=== PATIENT | male | born 1990 | race Caucasian/White ===

== ENCOUNTER 2016-07-19 15:19 | Day surgery (SDC) | payer BC ==
--- NOTE | 2016-07-19 15:49 | EDM.PDOC ---
ED HPI GI/ABDOMINAL - General Chief Complaint: Abdominal Pain Stated Complaint: STOMACH Time Seen by Provider: 07/19/16 15:28 Source of Information: Reports: Patient History Limitations: Reports: No limitations - History of Present Illness INITIAL COMMENTS - FREE TEXT/NARRATIVE: Presents reporting right lower quadrant pain. The patient states that about 4 days ago he had a "hard" bowel movement and has been unable to have a bowel movement since until yesterday when he took a laxative and had a very small llanes , mushy, mucousy stool. He denies dysuria, fever, personal history of renal calculi, nausea, vomiting. His father has kidney stones. - Related Data Allergies/ADRs: Allergies Allergy/AdvReac Type Severity Reaction Status Date / Time No Known Allergies Allergy Verified 07/19/16 15:28 Home Meds: Home Meds Acetaminophen [Tylenol] 07/19/16 [History] diphenhydrAMINE HCl [Sleep Aid] 07/19/16 [History] Past Medical History HEENT History: Reports: None Cardiovascular History: Reports: None Respiratory History: Reports: None Gastrointestinal History: Reports: None Neurological History: Reports: None Endocrine/Metabolic History: Reports: None Dermatologic History: Reports: None - Infectious Disease History Infectious Disease History: Reports: None - Past Surgical History HEENT Surgical History: Reports: None Cardiovascular Surgical History: Reports: None Respiratory Surgical History: Reports: None GI Surgical History: Reports: None Social & Family History - Family History Family Medical History: Noncontributory - Tobacco Use Smoking Status *Q: Never Smoker ED ROS GENERAL - Review of Systems Review Of Systems: ROS reveals no pertinent complaints other than HPI. ED EXAM, GI/ABD - Physical Exam Exam: See Below Exam Limited By: No limitations General Appearance: alert, no apparent distress Ears: normal external exam Nose: normal inspection Throat/Mouth: Normal inspection Head: atraumatic, normocephalic Neck: normal inspection Respiratory/Chest: no respiratory distress, lungs clear, normal breath sounds Cardiovascular: normal peripheral pulses, regular rate, rhythm, no murmur GI/Abdominal: normal bowel sounds, soft, no distention, tenderness (RLQ worse on deep palpation), guarding (RLQ). No: rebound, rigidity Back Exam: normal inspection Extremities: normal inspection Neurological: alert, oriented, normal cognition, no motor/sensory deficits Psychiatric: normal affect, normal mood Skin Exam: Warm, Dry, Intact, Normal color, No rash Course - Vital Signs Last Recorded V/S: Last Vital Signs Temp 36.6 C 07/19/16 15:29 Pulse 75 07/19/16 15:29 Resp 16 07/19/16 15:29 BP 136/81 07/19/16 15:29 Pulse Ox 99 07/19/16 15:29 - Orders/Labs/Meds Orders: Active Orders 24 hr Category Date Time Status Abdomen Pelvis wo Cont [CT] Stat Exams 07/19/16 15:35 Ordered CBC WITH AUTO DIFF [HEME] Stat Lab 07/19/16 15:35 Ordered COMPREHENSIVE METABOLIC PN,CMP [CHEM] Stat Lab 07/19/16 15:35 Ordered UA W/MICROSCOPIC [URIN] Stat Lab 07/19/16 15:35 Uncollected - Re-Assessments/Exams Free Text/Narrative Re-Assessment/Exam: 07/19/16 16:40 CT report and labs discussed with Dr. Warren, general surgery. Free Text/Narrative Re-Assessment/Exam: 07/19/16 17:01 Dr. Yeboah here to examine the patient. Departure - Departure Time of Disposition: 17:02 Disposition: Refer to Observation Clinical Impression: Appendicitis Qualifiers: Appendicitis type: acute appendicitis Acute appendicitis type: unspecified acute appendicitis type Qualified Code(s): K35.80 - Unspecified acute appendicitis Forms: ED Department Discharge - My Orders Last 24 Hours: My Active Orders 07/19/16 15:35 Abdomen Pelvis wo Cont [CT] Stat CBC WITH AUTO DIFF [HEME] Stat COMPREHENSIVE METABOLIC PN,CMP [CHEM] Stat UA W/MICROSCOPIC [URIN] Stat - Assessment/Plan Last 24 Hours: My Active Orders 07/19/16 15:35 Abdomen Pelvis wo Cont [CT] Stat CBC WITH AUTO DIFF [HEME] Stat COMPREHENSIVE METABOLIC PN,CMP [CHEM] Stat UA W/MICROSCOPIC [URIN] Stat
[2016-07-19 16:14] LABS: CHLORIDE,CL 105 mmol/L (98-110); SODIUM,NA 140 mmol/L (136-146)
[2016-07-19] MEDS ORDERED: Sodium Chloride 0.9% 1,000 ML IV ONE (16:40)
[2016-07-19] MEDS ORDERED: Piperacillin/Tazobactam 3.375 GM in Sodium Chloride 0.9% 50 ML IV ONE (17:00)
[2016-07-19] MEDS ORDERED: Ondansetron 4 MG/2 ML SDV ONE (17:03)
[2016-07-19] MEDS ORDERED: Propofol 200 MG/20 ML SDV ONE (17:03)
[2016-07-19] MEDS ORDERED: Rocuronium 10 MG/ML 10 ML Syringe ONE (17:03)
[2016-07-19] MEDS ORDERED: Lidocaine 2% 5 ML SDV ONE (17:03)
[2016-07-19] MEDS ORDERED: Midazolam 1 MG/ML 2 ML SDV ONE (17:04)
[2016-07-19] MEDS ORDERED: fentaNYL 250 MCG/5 ML SDV ONE (17:04)
--- NOTE | 2016-07-19 17:13 | PCM.SN ---
- Free Text/Narrative Note: H and P dictated.
[2016-07-19] MEDS ORDERED: Sodium Chloride 0.9% 2.5 ML Syringe FLUSH PRN (17:19)
[2016-07-19] MEDS ORDERED: Sodium Chloride 0.9% 10 ML Syringe FLUSH PRN (17:19)
[2016-07-19] MEDS ORDERED: Bupivacaine 0.5% 30 ML SDV ONE (17:24)
--- NOTE | 2016-07-19 17:24 | PCM.PREANE ---
Preanesthetic Assessment - Anesthesia/Transfusion/Family Hx Anesthesia History: No Prior Anesthesia Family History of Anesthesia Reaction: No Transfusion History: No Prior Transfusion(s) - Review of Systems General: No Symptoms Pulmonary: No Symptoms Cardiovascular: No Symptoms Gastrointestinal: Nausea, Vomiting Neurological: No Symptoms Other: Reports: None - Physical Assessment NPO Status Date: 07/19/16 NPO Status Time: 14:00 O2 Sat by Pulse Oximetry: 99 Respiratory Rate: 16 Vital Signs: Last Vital Signs Temp 36.6 C 07/19/16 15:29 Pulse 75 07/19/16 15:29 Resp 16 07/19/16 15:29 BP 136/81 07/19/16 15:29 Pulse Ox 99 07/19/16 15:29 Height: 5 ft 7 in Weight: 68.039 kg ASA Class: 1E Mental Status: Alert & Oriented x3 Airway Class: Mallampati = 1 Dentition: Reports: Normal Dentition Thyro-Mental Finger Breadths: 3 Mouth Opening Finger Breadths: 3 ROM/Head Extension: Full Lungs: Clear to auscultation Cardiovascular: Regular Rate - Lab Values: Laboratory Last Values WBC 12.97 K/uL (4.0-11.0) H 07/19/16 15:48 RBC 5.42 M/uL (4.50-5.90) 07/19/16 15:48 Hgb 16.6 g/dL (13.0-17.0) 07/19/16 15:48 Hct 47.6 % (38.0-50.0) 07/19/16 15:48 MCV 87.8 fL (80.0-98.0) 07/19/16 15:48 MCH 30.6 pg (27.0-32.0) 07/19/16 15:48 MCHC 34.9 g/dL (31.0-37.0) 07/19/16 15:48 RDW Std Deviation 39.9 fl (28.0-62.0) 07/19/16 15:48 RDW Coeff of Augie 13 % (11.0-15.0) 07/19/16 15:48 Plt Count 226 K/uL (150-400) 07/19/16 15:48 MPV 11.30 fL (7.40-12.00) 07/19/16 15:48 Neut % (Auto) 75.1 % (48.0-80.0) 07/19/16 15:48 Lymph % (Auto) 16.4 % (16.0-40.0) 07/19/16 15:48 [place] % (Auto) 6.3 % (0.0-15.0) 07/19/16 15:48 Eos % (Auto) 1.5 % (0.0-7.0) 07/19/16 15:48 Baso % (Auto) 0.7 % (0.0-1.5) 07/19/16 15:48 Neut # 9.7 K/uL (1.4-5.7) H 07/19/16 15:48 Lymph # 2.1 K/uL (0.6-2.4) 07/19/16 15:48 [place] # 0.8 K/uL (0.0-0.8) 07/19/16 15:48 Eos # 0.2 K/uL (0.0-0.7) 07/19/16 15:48 Baso # 0.1 K/uL (0.0-0.1) 07/19/16 15:48 Nucleated RBC % 0.0 /100WBC 07/19/16 15:48 Nucleated RBCs # 0 K/uL 07/19/16 15:48 Sodium 140 mmol/L (136-146) 07/19/16 15:48 Potassium 4.5 mmol/L (3.5-5.1) 07/19/16 15:48 Chloride 105 mmol/L (98-110) 07/19/16 15:48 Carbon Dioxide 26 mmol/L (21-31) 07/19/16 15:48 BUN 13 mg/dL (6.0-23.0) 07/19/16 15:48 Creatinine 0.9 mg/dL (0.6-1.5) 07/19/16 15:48 Est Cr Clr Drug Dosing 116.29 mL/min 07/19/16 15:48 Estimated GFR (MDRD) > 60.0 ml/min 07/19/16 15:48 Glucose 101 mg/dL (60-110) 07/19/16 15:48 Calcium 9.3 mg/dL (8.8-10.8) 07/19/16 15:48 Total Bilirubin 1.0 mg/dL (0.1-1.5) 07/19/16 15:48 AST 22 IU/L (5-40) 07/19/16 15:48 ALT 19 IU/L (8-54) 07/19/16 15:48 Alkaline Phosphatase 68 (40-150) 07/19/16 15:48 Total Protein 8.2 g/dL (6.0-8.0) H 07/19/16 15:48 Albumin 4.4 g/dL (3.5-5.0) 07/19/16 15:48 Globulin 3.8 g/dL (2.0-3.5) H 07/19/16 15:48 Albumin/Globulin Ratio 1.2 (1.3-2.8) L 07/19/16 15:48 Urine Color YELLOW 07/19/16 16:40 Urine Appearance CLEAR 07/19/16 16:40 Urine pH 7.5 (5.0-8.0) 07/19/16 16:40 Ur Specific [place] 1.015 (1.001-1.035) 07/19/16 16:40 Urine Protein NEGATIVE mg/dL (NEGATIVE) 07/19/16 16:40 Urine Glucose (UA) NEGATIVE mg/dL (NEGATIVE) 07/19/16 16:40 Urine Ketones NEGATIVE mg/dL (NEGATIVE) 07/19/16 16:40 Urine Occult Blood NEGATIVE (NEGATIVE) 07/19/16 16:40 Urine Nitrite NEGATIVE (NEGATIVE) 07/19/16 16:40 Urine Bilirubin NEGATIVE (NEGATIVE) 07/19/16 16:40 Urine Urobilinogen 0.2 EU/dL (<2.0) 07/19/16 16:40 Ur Leukocyte Esterase NEGATIVE (NEGATIVE) 07/19/16 16:40 Urine RBC 0-2 (0-2/HPF) 07/19/16 16:40 Urine WBC 0-2 (0-5/HPF) 07/19/16 16:40 Ur Epithelial Cells RARE (NONE-FEW) 07/19/16 16:40 Urine Bacteria RARE (NEGATIVE) 07/19/16 16:40 - Allergies Allergies/Adverse Reactions: Allergies Allergy/AdvReac Type Severity Reaction Status Date / Time No Known Allergies Allergy Verified 07/19/16 15:28 - Blood Blood Available: No - Acknowledgements Anesthesia Type Planned: General Anesthesia Pt an Appropriate Candidate for the Planned Anesthesia: Yes Alternatives and Risks of Anesthesia Discussed w Pt/Guardian: Yes Pt/Guardian Understands and Agrees with Anesthesia Plan: Yes PreAnesthesia Questionnaire HEENT History: Reports: None Cardiovascular History: Reports: None Respiratory History: Reports: None Gastrointestinal History: Reports: None Neurological History: Reports: None Endocrine/Metabolic History: Reports: None Dermatologic History: Reports: None - Infectious Disease History Infectious Disease History: Reports: None - Past Surgical History HEENT Surgical History: Reports: None Cardiovascular Surgical History: Reports: None Respiratory Surgical History: Reports: None GI Surgical History: Reports: None - SUBSTANCE USE Smoking Status *Q: Never Smoker - HOME MEDS Home Medications: Home Meds Acetaminophen [Tylenol] 07/19/16 [History] diphenhydrAMINE HCl [Sleep Aid] 07/19/16 [History] - CURRENT (IN HOUSE) MEDS Current Meds: Current Medications Sodium Chloride (Normal Saline) 1,000 mls @ 999 mls/hr IV STAT ONE Stop: 07/19/16 17:40 Last Admin: 07/19/16 16:51 Dose: 999 mls/hr Piperacillin Sod/Tazobactam (Sod 3.375 gm/ Sodium Chloride) 50 mls @ 100 mls/ hr IV ONETIME ONE Stop: 07/19/16 17:29 Last Admin: 07/19/16 17:07 Dose: 100 mls/hr Lactated Ringer's (Ringers, Lactated) 1,000 mls @ 125 mls/hr IV ASDIRECTED BIJAL Sodium Chloride (Saline Flush) 10 ml FLUSH ASDIRECTED PRN PRN Reason: Keep Vein Open Sodium Chloride (Saline Flush) 2.5 ml FLUSH ASDIRECTED PRN PRN Reason: Keep Vein Open Discontinued Medications Fentanyl (Sublimaze) Confirm Administered Dose 250 mcg .ROUTE .STK-MED ONE Stop: 07/19/16 17:05 Lidocaine (Xylocaine-Mpf 2%) Confirm Administered Dose 5 ml .ROUTE .STK-MED ONE Stop: 07/19/16 17:04 Midazolam HCl (Versed 1 Mg/Ml) Confirm Administered Dose 2 mg .ROUTE .STK-MED ONE Stop: 07/19/16 17:05 Ondansetron HCl (Zofran) Confirm Administered Dose 4 mg .ROUTE .STK-MED ONE Stop: 07/19/16 17:04 Propofol (Diprivan 20 Ml) Confirm Administered Dose 200 mg .ROUTE .STK-MED ONE Stop: 07/19/16 17:04 Rocuronium [place] (Zemuron) Confirm Administered Dose 100 mg .ROUTE .STK-MED ONE Stop: 07/19/16 17:04 Preanesthetic Assessment - PHYSICAL ASSESSMENT O2 Sat by Pulse Oximetry: 99 RR: 16 Vital Signs: Last Vital Signs Temp 36.6 C 07/19/16 15:29 Pulse 75 07/19/16 15:29 Resp 16 07/19/16 15:29 BP 136/81 07/19/16 15:29 Pulse Ox 99 07/19/16 15:29 Height: 5 ft 7 in Weight: 68.039 kg - LAB Values: Laboratory Last Values WBC 12.97 K/uL (4.0-11.0) H 07/19/16 15:48 RBC 5.42 M/uL (4.50-5.90) 07/19/16 15:48 Hgb 16.6 g/dL (13.0-17.0) 07/19/16 15:48 Hct 47.6 % (38.0-50.0) 07/19/16 15:48 MCV 87.8 fL (80.0-98.0) 07/19/16 15:48 MCH 30.6 pg (27.0-32.0) 07/19/16 15:48 MCHC 34.9 g/dL (31.0-37.0) 07/19/16 15:48 RDW Std Deviation 39.9 fl (28.0-62.0) 07/19/16 15:48 RDW Coeff of Augie 13 % (11.0-15.0) 07/19/16 15:48 Plt Count 226 K/uL (150-400) 07/19/16 15:48 MPV 11.30 fL (7.40-12.00) 07/19/16 15:48 Neut % (Auto) 75.1 % (48.0-80.0) 07/19/16 15:48 Lymph % (Auto) 16.4 % (16.0-40.0) 07/19/16 15:48 [place] % (Auto) 6.3 % (0.0-15.0) 07/19/16 15:48 Eos % (Auto) 1.5 % (0.0-7.0) 07/19/16 15:48 Baso % (Auto) 0.7 % (0.0-1.5) 07/19/16 15:48 Neut # 9.7 K/uL (1.4-5.7) H 07/19/16 15:48 Lymph # 2.1 K/uL (0.6-2.4) 07/19/16 15:48 [place] # 0.8 K/uL (0.0-0.8) 07/19/16 15:48 Eos # 0.2 K/uL (0.0-0.7) 07/19/16 15:48 Baso # 0.1 K/uL (0.0-0.1) 07/19/16 15:48 Nucleated RBC % 0.0 /100WBC 07/19/16 15:48 Nucleated RBCs # 0 K/uL 07/19/16 15:48 Sodium 140 mmol/L (136-146) 07/19/16 15:48 Potassium 4.5 mmol/L (3.5-5.1) 07/19/16 15:48 Chloride 105 mmol/L (98-110) 07/19/16 15:48 Carbon Dioxide 26 mmol/L (21-31) 07/19/16 15:48 BUN 13 mg/dL (6.0-23.0) 07/19/16 15:48 Creatinine 0.9 mg/dL (0.6-1.5) 07/19/16 15:48 Est Cr Clr Drug Dosing 116.29 mL/min 07/19/16 15:48 Estimated GFR (MDRD) > 60.0 ml/min 07/19/16 15:48 Glucose 101 mg/dL (60-110) 07/19/16 15:48 Calcium 9.3 mg/dL (8.8-10.8) 07/19/16 15:48 Total Bilirubin 1.0 mg/dL (0.1-1.5) 07/19/16 15:48 AST 22 IU/L (5-40) 07/19/16 15:48 ALT 19 IU/L (8-54) 07/19/16 15:48 Alkaline Phosphatase 68 (40-150) 07/19/16 15:48 Total Protein 8.2 g/dL (6.0-8.0) H 07/19/16 15:48 Albumin 4.4 g/dL (3.5-5.0) 07/19/16 15:48 Globulin 3.8 g/dL (2.0-3.5) H 07/19/16 15:48 Albumin/Globulin Ratio 1.2 (1.3-2.8) L 07/19/16 15:48 Urine Color YELLOW 07/19/16 16:40 Urine Appearance CLEAR 07/19/16 16:40 Urine pH 7.5 (5.0-8.0) 07/19/16 16:40 Ur Specific [place] 1.015 (1.001-1.035) 07/19/16 16:40 Urine Protein NEGATIVE mg/dL (NEGATIVE) 07/19/16 16:40 Urine Glucose (UA) NEGATIVE mg/dL (NEGATIVE) 07/19/16 16:40 Urine Ketones NEGATIVE mg/dL (NEGATIVE) 07/19/16 16:40 Urine Occult Blood NEGATIVE (NEGATIVE) 07/19/16 16:40 Urine Nitrite NEGATIVE (NEGATIVE) 07/19/16 16:40 Urine Bilirubin NEGATIVE (NEGATIVE) 07/19/16 16:40 Urine Urobilinogen 0.2 EU/dL (<2.0) 07/19/16 16:40 Ur Leukocyte Esterase NEGATIVE (NEGATIVE) 07/19/16 16:40 Urine RBC 0-2 (0-2/HPF) 07/19/16 16:40 Urine WBC 0-2 (0-5/HPF) 07/19/16 16:40 Ur Epithelial Cells RARE (NONE-FEW) 07/19/16 16:40 Urine Bacteria RARE (NEGATIVE) 07/19/16 16:40 - ALLERGIES Allergies/Adverse Reactions: Allergies Allergy/AdvReac Type Severity Reaction Status Date / Time No Known Allergies Allergy Verified 07/19/16 15:28
[2016-07-19] MEDS ORDERED: Dexamethasone 4 MG/ML 5 ML MDV ONE (17:48)
[2016-07-19] MEDS ORDERED: Scopolamine 1.5 MG Transdermal Patch ONE (17:49)
[2016-07-19] MEDS ORDERED: HYDROmorphone 2 MG/ML Syringe ONE (17:57)
[2016-07-19] MEDS ORDERED: Ketorolac 30 MG/ML SDV ONE (18:18)
[2016-07-19] MEDS ORDERED: Ondansetron 4 MG/2 ML SDV IVPUSH PRN (18:36)
[2016-07-19] MEDS ORDERED: HYDROmorphone 2 MG/ML Syringe IVPUSH PRN (18:36)
--- NOTE | 2016-07-19 18:40 | PCM.OPNOTE ---
- General Post-Op/Procedure Note Date of Surgery/Procedure: 07/19/16 Operative Procedure(s): Laparoscopic appendectomy Findings: Inflamed appendix. No perforation. Pre Op Diagnosis: Appendicitis Post-Op Diagnosis: Appendicitis Anesthesia Technique: General ET tube Primary Surgeon: Carolee Yeboah Pathology: appendix EBL in mLs: 10 Condition: Fair
--- NOTE | 2016-07-19 19:30 | PCM.POSTAN ---
POST ANESTHESIA ASSESSMENT - MENTAL STATUS Mental Status: alert, oriented - RESPIRATORY Respiratory Status: respiratory rate WNL, airway patent, O2 saturation stable - CARDIOVASCULAR CV Status: pulse rate WNL, blood pressure stable - GASTROINTESTINAL GI Status: no symptoms - PAIN Pain Score: 2 - POST OP HYDRATION Hydration Status: adequate & stable
[2016-07-19] MEDS: Lactated Ringers 1,000 ML IV SCH (19:37)
--- NOTE | 2016-07-19 19:55 | PCM48HPAN ---
Post Anesthesia Note - EVALUATION WITHIN 48HRS OF ANESTHETIC Vital Signs in Normal Range: Yes Patient Participated in Evaluation: Yes Respiratory Function Stable: Yes Airway Patent: Yes Cardiovascular Function Stable: Yes Hydration Status Stable: Yes Pain Control Satisfactory: Yes Nausea and Vomiting Control Satisfactory: Yes Mental Status Recovered: Yes
--- NOTE | 2016-07-19 21:06 | HP ---
DATE OF : 1990 PRIMARY CARE PHYSICIAN: Sajan PCP CHIEF COMPLAINT: Right lower quadrant pain. HISTORY OF PRESENT ILLNESS: The patient is a 26-year-old, otherwise healthy male, who presents with a one- day history of abdominal pain and constipation. The patient developed abdominal pain overnight which he thought was a viral illness. The pain persisted throughout the day and the patient felt bloated and constipated. He took a laxative with no results. The pain then migrated down to his right lower quadrant. He discussed his symptoms with his mother, who sent him into the emergency room. On examination in the emergency room, his abdomen was fairly nontender. A CT of the abdomen and pelvis was obtained that showed mild enlargement and periappendiceal inflammation around the appendix. The patient's white count came back at 12.9. He is otherwise afebrile and nontoxic appearing. PAST MEDICAL HISTORY: None. PAST SURGICAL HISTORY: None. FAMILY HISTORY: Noncontributory. SOCIAL HISTORY: No ethanol, tobacco, or drugs. ALLERGIES TO MEDICATIONS: None. CURRENT MEDICATIONS: None. REVIEW OF SYSTEMS: A 10-point review of systems is negative other than stated above in the HPI. PHYSICAL EXAMINATION: VITAL SIGNS: Blood pressure 136/81, temp 97.9, pulse 75, respirations 16, SpO2 of 99% on room air. GENERAL: A well appearing, young gentleman, in no acute distress. HEENT: Ears and nose are normal externally. Eyes, pupils are equal, round, reactive to light and accommodation. Conjunctivae clear. Mouth, mucous membranes moist. LUNGS: Clear to auscultation bilaterally. HEART: Regular rate and rhythm. ABDOMEN: Flat, soft, nontender to palpation. Guarding and rebound to percussion in the right lower quadrant. EXTREMITIES: Warm and well perfused. 2+ arterial pulses throughout. LABORATORY DATA: CBC; white blood count 12.97, hemoglobin 16.6, platelet count 226, neutrophil percent 75.1. CMP within normal limits. UA is normal. Abdomen and pelvis CT, impression: 1. Mild enlargement of the appendix with periappendiceal inflammatory changes in the retrocecal location; rule out early appendicitis. 2. Absent right kidney. 3. No kidney stones on the left side. 4. Minimal thickening of bladder, follow up as needed. 5. No other abnormalities are identified. ASSESSMENT: Acute appendicitis. PLAN: Given the patient's history and tenderness over the right lower quadrant, I feel he has very early appendicitis. We discussed the pathophysiology of appendicitis. I explained to the patient that the treatment for this would be removal of his appendix. We discussed the laparoscopic and open procedures. I explained that should I be unable to perform the appendectomy laparoscopically, I would be converting to open. We discussed the risks, including bleeding, infection, or damage to surrounding structures. The patient verbalized understanding and wishes to proceed. The patient will be given IV Zosyn prior to the OR and admitted after surgery. MARIE VARGAS /[id number]
--- NOTE | 2016-07-19 21:52 | OR ---
SURGEON: MELISSA RAMSAY MD DATE OF PROCEDURE: 07/19/2016 PREOPERATIVE DIAGNOSIS: Appendicitis. POSTOPERATIVE DIAGNOSIS: Nonperforated appendicitis. PROCEDURE PERFORMED: Laparoscopic appendectomy. ESTIMATED BLOOD LOSS: 10 mL. FINDINGS: Acutely inflamed and dilated retrocecal appendix with no evidence of perforation. COMPLICATIONS: None. INDICATIONS: The patient is a 26-year-old male with a one-day history of abdominal pain, now centered in the right lower quadrant. CT showed mildly dilated and inflamed appendix. White count was 13,000. The patient and I had a discussion regarding the pathophysiology of appendicitis. I explained to him that the most appropriate treatment would be removal of the appendix. We discussed the laparoscopic and open procedures. I explained that should I be unable to perform this laparoscopically, I would perform it open. We discussed the risks including bleeding, infection, damage to surrounding structure. I also explained his most likely course of postoperative care given my findings. The patient verbalized understanding and wished to proceed. PROCEDURE IN DETAIL: The patient was brought to the operating room suite and placed in the supine position on the operating room table. A time-out was completed verifying the patient's name, age, date of , allergies, and procedure to be performed. General endotracheal anesthesia was induced. The abdomen was prepped and draped in usual standard fashion. A Solis catheter was placed and the left arm was tucked to the patient's side. A 0.5% Marcaine was used to anesthetize all three port site incisions prior to placement of the trocars. A 1-cm incision was made in the left upper quadrant along the mid axillary line at approximately 2 finger breaths below the left subcostal margin. Using a 5 mm optical trocar, I gained entry into the abdomen. The abdomen was insufflated to a pressure of 13-15 mmHg with carbon dioxide. A 5 mm 30-degree scope was inserted and the area underneath my initial trocar was inspected for any injury and none was noted. A 5-mm trocar was placed just lateral to the umbilicus on the left side. This was done under direct visualization. A 12-mm port was placed under direct visualization in the left lower quadrant. Care was taken to avoid any injury to the inferior epigastric vessels. The patient was then placed into Trendelenburg position and airplane'd to the left side. Using atraumatic graspers, the small bowel was swept up to the left upper quadrant and I noted the tinea of the cecum. This was then grasped and tinea rotated medially exposing a grossly inflamed and enlarged appendix. The appendix tip was grasped with the atraumatic grasper and brought up into view. I was able to easily trace the appendix down to the base of the cecum. A window was made between the appendiceal mesentery and the base of the appendix. This was made large enough to accommodate a stapler across the base of the appendix. An endoscopic stapler loaded with a 45 mm blue load was then passed into the patient's abdomen and placed across the base of the appendix. The appendix was stapled and ligated. I then used a Harmonic Scalpel to free up some of the appendiceal mesentery to allow passage of another endoscopic stapler across the appendiceal mesentery. A 45 mm plasencia load was placed on the endoscopic stapling device and passed into the abdomen. The appendiceal mesentery was stapled and ligated. The appendix and an associated mesentery was then placed in an EndoCatch bag and removed through the left lower quadrant port. The 11 mm port was then replaced back into the abdomen. The remainder of the abdomen was inspected and no further injury was noted. There was some cloudy appearing fluid down in the pelvis. This was irrigated and washed out. I irrigated the area around the base of the cecum with normal saline until it ran clear. The base of the cecum and mesentery were reinspected for hemostasis, and hemostasis was ensured. I then attempted to close the 12 mm left lower quadrant port site using a Mark-Lisa needle. However, I was unable to keep insufflation in the abdomen which prevented me from safely passing the Mark-Lisa needle into the abdomen. I instead removed the remainder of the ports under direct visualization and allowed the abdomen to desufflate. I then closed the left lower quadrant fascia with an 0 Vicryl suture on a UR-6 needle. This was closed in a [id number] fashion. A small subcutaneous skin bleeder was noted. I attempted to obtain hemostasis with cautery, but was unable to do so. I then tied off the vessel with a 3-0 Vicryl suture. The subcutaneous tissue was then closed using an interrupted 3-0 Vicryl. I then closed the skin over the 12-mm port site with a running 4-0 Monocryl suture. The remainder of the 5-mm trocar sites were closed with interrupted 4-0 Monocryl. Steri-Strips and sterile dressings were applied. Counts were complete and correct at the end of the case. The patient was extubated and taken to PACU in stable condition. MARIE VARGAS /[id number]
[2016-07-20] MEDS: Acetaminophen/oxyCODONE 325-5 MG Tab PO PRN ×2 (01:18→08:21)
[2016-07-20] MEDS: Lactated Ringers 1,000 ML IV SCH (03:02)
[2016-07-20 08:13] VITALS: BP 112/51
--- NOTE | 2016-07-20 09:35 | PCM.PN ---
- General Info Date of Service: 07/20/16 Functional Status: Reports: pain controlled, tolerating diet, ambulating, urinating - Review of Systems General: Reports: No Symptoms Pulmonary: Reports: no symptoms Cardiovascular: Reports: No Symptoms Gastrointestinal: Reports: No symptoms Genitourinary: Reports: no symptoms Musculoskeletal: Reports: no symptoms Skin: Reports: no symptoms - Patient Data Vitals - most recent: Last Vital Signs Temp 37.4 C 07/20/16 08:00 Pulse 67 07/20/16 08:00 Resp 16 07/20/16 08:00 BP 112/51 L 07/20/16 08:00 Pulse Ox 97 07/20/16 08:00 Weight - most recent: 71 kg I&O - last 24 hours: Intake & Output 07/19/16 07/20/16 07/20/16 22:59 06:59 14:59 Intake Total 2100 1500 Output Total 160 400 Balance 1940 1100 Lab Results last 24 hrs: Laboratory Results - last 24 hr 07/19/16 07/19/16 07/19/16 Range/Units 15:48 15:48 16:40 WBC 12.97 H (4.0-11.0) K/uL RBC 5.42 (4.50-5.90) M/uL Hgb 16.6 (13.0-17.0) g/dL Hct 47.6 (38.0-50.0) % MCV 87.8 (80.0-98.0) fL MCH 30.6 (27.0-32.0) pg MCHC 34.9 (31.0-37.0) g/dL RDW Std Deviation 39.9 (28.0-62.0) fl RDW Coeff of Augie 13 (11.0-15.0) % Plt Count 226 (150-400) K/uL MPV 11.30 (7.40-12.00) fL Neut % (Auto) 75.1 (48.0-80.0) % Lymph % (Auto) 16.4 (16.0-40.0) % Evans % (Auto) 6.3 (0.0-15.0) % Eos % (Auto) 1.5 (0.0-7.0) % Baso % (Auto) 0.7 (0.0-1.5) % Neut # 9.7 H (1.4-5.7) K/uL Lymph # 2.1 (0.6-2.4) K/uL Evans # 0.8 (0.0-0.8) K/uL Eos # 0.2 (0.0-0.7) K/uL Baso # 0.1 (0.0-0.1) K/uL Nucleated RBC % 0.0 /100WBC Nucleated RBCs # 0 K/uL Sodium 140 (136-146) mmol/L Potassium 4.5 (3.5-5.1) mmol/L Chloride 105 (98-110) mmol/L Carbon Dioxide 26 (21-31) mmol/L BUN 13 (6.0-23.0) mg/dL Creatinine 0.9 (0.6-1.5) mg/dL Est Cr Clr Drug Dosing 116.29 mL/min Estimated GFR (MDRD) > 60.0 ml/min Glucose 101 (60-110) mg/dL Calcium 9.3 (8.8-10.8) mg/dL Total Bilirubin 1.0 (0.1-1.5) mg/dL AST 22 (5-40) IU/L ALT 19 (8-54) IU/L Alkaline Phosphatase 68 (40-150) Total Protein 8.2 H (6.0-8.0) g/dL Albumin 4.4 (3.5-5.0) g/dL Globulin 3.8 H (2.0-3.5) g/dL Albumin/Globulin Ratio 1.2 L (1.3-2.8) Urine Color YELLOW Urine Appearance CLEAR Urine pH 7.5 (5.0-8.0) Ur Specific [place] 1.015 (1.001-1.035) Urine Protein NEGATIVE (NEGATIVE) mg/dL Urine Glucose (UA) NEGATIVE (NEGATIVE) mg/dL Urine Ketones NEGATIVE (NEGATIVE) mg/dL Urine Occult Blood NEGATIVE (NEGATIVE) Urine Nitrite NEGATIVE (NEGATIVE) Urine Bilirubin NEGATIVE (NEGATIVE) Urine Urobilinogen 0.2 (<2.0) EU/dL Ur Leukocyte Esterase NEGATIVE (NEGATIVE) Urine RBC 0-2 (0-2/HPF) Urine WBC 0-2 (0-5/HPF) Ur Epithelial Cells RARE (NONE-FEW) Urine Bacteria RARE (NEGATIVE) Med Orders - Current: Current Medications Hydromorphone HCl (Dilaudid) 0.5 mg IVPUSH Q1H PRN PRN Reason: Pain (severe 7-10) Last Admin: 07/19/16 20:52 Dose: 0.5 mg Lactated Ringer's (Ringers, Lactated) 1,000 mls @ 125 mls/hr IV ASDIRECTED BIJAL Last Admin: 07/20/16 03:02 Dose: 125 mls/hr Ondansetron HCl (Zofran) 4 mg IVPUSH Q6H PRN PRN Reason: Nausea/Vomiting Oxycodone/Acetaminophen (Percocet 325-5 Mg) 2 tab PO Q4H PRN PRN Reason: Pain (moderate 4-6) Last Admin: 07/20/16 08:21 Dose: 2 tab Sodium Chloride (Saline Flush) 10 ml FLUSH ASDIRECTED PRN PRN Reason: Keep Vein Open Sodium Chloride (Saline Flush) 2.5 ml FLUSH ASDIRECTED PRN PRN Reason: Keep Vein Open Discontinued Medications Bupivacaine HCl (Marcaine 0.5%) Confirm Administered Dose 30 ml .ROUTE .STK-MED ONE Stop: 07/19/16 17:25 Dexamethasone (Dexamethasone) Confirm Administered Dose 20 mg .ROUTE .STK-MED ONE Stop: 07/19/16 17:49 Fentanyl (Sublimaze) Confirm Administered Dose 250 mcg .ROUTE .STK-MED ONE Stop: 07/19/16 17:05 Hydromorphone HCl (Dilaudid) Confirm Administered Dose 2 mg .ROUTE .STK-MED ONE Stop: 07/19/16 17:58 Sodium Chloride (Normal Saline) 1,000 mls @ 999 mls/hr IV STAT ONE Stop: 07/19/16 17:40 Last Admin: 07/19/16 16:51 Dose: 999 mls/hr Piperacillin Sod/Tazobactam (Sod 3.375 gm/ Sodium Chloride) 50 mls @ 100 mls/ hr IV ONETIME ONE Stop: 07/19/16 17:29 Last Admin: 07/19/16 17:07 Dose: 100 mls/hr Ketorolac Tromethamine (Toradol) Confirm Administered Dose 30 mg .ROUTE .STK- MED ONE Stop: 07/19/16 18:19 Lidocaine (Xylocaine-Mpf 2%) Confirm Administered Dose 5 ml .ROUTE .STK-MED ONE Stop: 07/19/16 17:04 Midazolam HCl (Versed 1 Mg/Ml) Confirm Administered Dose 2 mg .ROUTE .STK-MED ONE Stop: 07/19/16 17:05 Ondansetron HCl (Zofran) Confirm Administered Dose 4 mg .ROUTE .STK-MED ONE Stop: 07/19/16 17:04 Propofol (Diprivan 20 Ml) Confirm Administered Dose 200 mg .ROUTE .STK-MED ONE Stop: 07/19/16 17:04 Rocuronium [place] (Zemuron) Confirm Administered Dose 100 mg .ROUTE .STK-MED ONE Stop: 07/19/16 17:04 Scopolamine (Transderm-Scop) Confirm Administered Dose 1.5 mg .ROUTE .STK-MED ONE Stop: 07/19/16 17:50 Senna/Docusate Sodium (Senna Plus) 2 tab PO ONETIME ONE Stop: 07/20/16 07:41 Last Admin: 07/20/16 08:22 Dose: 2 tab - Exam General: alert, oriented HEENT: Pupils equal, Pupils reactive Lungs: Clear to auscultation, Normal respiratory effort Cardiovascular: Regular Rate, Regular Rhythm Abdomen: bowel sounds present, soft, no tenderness, no distension Extremities: no edema - Problem List & Annotations (1) Appendicitis SNOMED Code(s): 38100117 Code(s): K37 - UNSPECIFIED APPENDICITIS Status: Acute Current Visit: Yes Qualifiers: Appendicitis type: acute appendicitis Acute appendicitis type: unspecified acute appendicitis type Qualified Code(s): K35.80 - Unspecified acute appendicitis - Problem List Review Problem List Initiated/Reviewed/Updated: Yes - My Orders Last 24 Hours: My Active Orders 07/19/16 17:19 Sodium Chloride 0.9% [Saline Flush] 10 ml FLUSH ASDIRECTED PRN Sodium Chloride 0.9% [Saline Flush] 2.5 ml FLUSH ASDIRECTED PRN Peripheral IV Insertion Adult [OM.PC] Routine Sequential Compression Device [OM.PC] Routine Resuscitation Status Routine 07/19/16 17:20 Antiembolic Devices [RC] Q12H 07/19/16 17:30 Lactated Ringers [Ringers, Lactated] 1,000 ml IV ASDIRECTED 07/19/16 18:36 Oxygen Therapy [RC] PRN RT Incentive Spirometry [RC] ASDIRECTED Up ad Amber [RC] ASDIRECTED Acetaminophen/oxyCODONE [Percocet 325-5 MG] 2 tab PO Q4H PRN HYDROmorphone [Dilaudid] 0.5 mg IVPUSH Q1H PRN Ondansetron [Zofran] 4 mg IVPUSH Q6H PRN 07/19/16 18:37 Intake and Output [RC] Q12H Notify Provider Vital Signs [RC] PRN 07/20/16 07:37 Ready for Discharge [RC] PER UNIT ROUTINE 07/20/16 Breakfast Regular Diet [DIET] - Assessment Assessment:: POD # 1 laparoscopic appendectomy for non-perforated appendicitis - Plan Plan:: -Pain: D/C home with percocet -GI: Regular diet as tolerated. Miralax daily while on narcotics. Senna/ docusate this am -Infectious: VSS. Appendix non-perforated. No need for at home antibiotics -D/C home today. No driving or work for one week. Dressings can be removed tomorrow. Ok to shower after that. No swimming/tub bath for two weeks. No lifting > 20lbs for 4 weeks.
--- NOTE | 2016-07-20 19:35 | CT ---
EXAM DATE: 07/19/16 PATIENT'S AGE: 26 Patient: KASSANDRA BOSWELL Facility: [place], [place] Site . Site : 1990 Study: CT Abdomen/Pelvis [id number]/19/2017 4:02:23 PM Ordering Physician: Doctor Terry Final Report: INDICATION: Right lower quadrant abdominal pain. Comparison: None. Technique: CT abdomen and pelvis no intravenous or oral contrast; coronal and sagittal reformats. Findings: No abnormal intra pulmonary nodular densities through the lung bases. No evidence of pleural effusion. Normal size cardiac silhouette without any evidence of pericardial effusion. No focal hepatic or splenic pathology. No pancreatic pathology. No adrenal pathology. Right kidney is absent. Left kidney is normal in structure with no obstructive uropathy or perinephric pathology. No retroperitoneal lymphadenopathy. No evidence of abdominal or pelvic ascites. CT study of the pelvis reveals minimal but definite thickening of the bladder wall; clinical significance and etiology unclear; followup is needed. Appendix is enlarged measuring 11 mm in diameter with minimal and questionable periappendiceal inflammatory changes. The appendix is located in the retro cecal location. No evidence of intra-abdominal abscess. Impression: 1. Mild enlargement of the appendix with periappendiceal inflammatory changes in a retrocecal location; rule out early acute appendicitis. 2. Absent right kidney. 3. No kidney stones on the left side. 4. Minimal thickening of the bladder wall; follow-up is needed 5. No other abnormalities are identified. Dictated by Leoncio Isidro MD @ Jul 19 2016 4:10PM (Electronic Signature) Report Signed by Proxy and Original Signed Document filed in the Medical Record. MTDD
== END 2016-07-20 10:00 | disposition home or self-care (01) ==
LOC: MW.ED 15:19 → MW.SDS 16:54 → MW.MS 19:36 → MW.SDS 07-20 10:00
PROVIDERS: ATTEND Surgery
DX: K35.80 Unspecified acute appendicitis (principal); Z79.899 Other long term (current) drug therapy
CPT/HCPCS: 36415; 44970; 74176; 80053; 81001; 85025; 88304; 96365; 99285; A9270; J1100; J1170; J1885; J2250; J2405; J2543; J3010; J7040; J7050; J7120; 00840; 99284; J2704

== ENCOUNTER 2023-11-09 20:04 | Emergency (ER) | payer BC ==
[2023-11-09 20:24] LABS: BILIRUBIN,URINE NEGATIVE (NEGATIVE); COLOR,URINE YELLOW; GLUCOSE,URINE NEGATIVE (NEGATIVE); KETONES,URINE NEGATIVE (NEGATIVE); LEUKOCYTE ESTERASE,URINE SMALL (NEGATIVE); NITRITE,URINE NEGATIVE (NEGATIVE); OCCULT BLOOD,URINE SMALL (NEGATIVE); PROTEIN,URINE NEGATIVE (NEGATIVE); UROBILINOGEN,URINE 0.2 EU/dL (<2.0)
[2023-11-09 20:27] LABS: APPEARANCE,URINE HAZY
[2023-11-09 20:34] LABS: BACTERIA,URINE 2+ (NEGATIVE); MUCUS,URINE LIGHT (NONE-MOD); SQUAMOUS EPITHELIAL CELLS,UR FEW; WBC,URINE 15-20 (0-5/HPF)
[2023-11-09 21:11] VITALS: BP 160/77; PULSE 82
[2023-11-09 21:49] LABS: BASOPHILS ABSOLUTE AUTO 0.11 K/uL (0.00-0.20); EOSINOPHILS ABSOLUTE AUTO 0.25 K/uL (0.00-0.45); EOSINOPHILS PERCENT AUTO 2.3 % (0.0-6.0); HEMATOCRIT 44.2 % (42.0-52.0); HEMOGLOBIN 15.8 g/dL (14.0-18.0); IMMATURE GRAN ABSOLUTE AUTO 0.04 K/uL (0.00-0.05); IMMATURE GRAN PERCENT AUTO 0.4 % (0.0-0.4); LYMPHOCYTES PERCENT AUTO 21.4 % (24.0-44.0); MEAN CORPUSCULAR HEMOGLOBIN 30.6 pg (28.0-32.0); MEAN CORPUSCULAR HGB CONC 35.7 g/dL (32.0-36.0); MEAN CORPUSCULAR VOLUME 85.7 fL (83.0-99.0); MEAN PLATELET VOLUME 11.6 fL (9.4-12.4); MONOCYTES ABSOLUTE AUTO 0.96 K/uL (0.00-0.80); MONOCYTES PERCENT AUTO 8.9 % (0.0-8.0); PLATELET COUNT,PLT 225 K/uL (150-400); RED BLOOD CELL COUNT 5.16 M/uL (4.52-5.90); WHITE BLOOD CELL COUNT,WBC 10.76 K/uL (3.9-11.3)
[2023-11-09 22:12] LABS: A/G RATIO 1.1 (0.9-1.6); ALBUMIN 3.9 g/dL (3.4-5.0); BILIRUBIN TOTAL 0.7 mg/dL (0.2-1.0); CALCIUM 8.8 mg/dL (8.5-10.1); CARBON DIOXIDE,CO2 27.4 mmol/L (21.0-32.0); CREATININE 0.9 mg/dL (0.8-1.3); EST CRCL DRUG DOSING (CG) 109.15 mL/min; POTASSIUM,K 3.9 mmol/L (3.5-5.1); PROTEIN TOTAL,TP 7.6 g/dL (6.4-8.2)
[2023-11-09 23:02] LABS: C. TRACHOMATIS BY PCR NOT DETECTED; N. GONORRHOEAE BY PCR NOT DETECTED
[2023-11-09] MEDS: Levofloxacin 500 MG Tab PO ONE (23:32)
== END 2023-11-09 23:33 | disposition home or self-care (01) ==
LOC: MW.ED 20:04
DX: N39.0 Urinary tract infection, site not specified (principal); Z79.899 Other long term (current) drug therapy; Z75.8 Other problems related to medical facilities and other health care
CPT/HCPCS: 36415; 74176; 80053; 81001; 85025; 87086; 87491; 87591; 99284; A9270